=== PATIENT | female | born 1960 | race Caucasian/White ===

== ENCOUNTER 2022-03-18 23:47 | Inpatient (IN) ==
[2022-03-19] MEDS ORDERED: ONDANSETRON 4 MG/2 ML VIAL IV STA (00:41)
[2022-03-19] MEDS ORDERED: SODIUM CHLORIDE 0.9% 1,000 ML IV STA (00:41)
[2022-03-19] MEDS ORDERED: KETOROLAC 30 MG/1 ML VIAL IV STA (00:41)
[2022-03-19] MEDS ORDERED: HYDROmorphone 1 MG/1 ML SYRINGE IV STA ×2 (00:41→02:59)
[2022-03-19 01:43] LABS: Basophils % 0.2 % (0.0-0.8); Eosinophils % 0.1 % (0.00-10.9); Hemoglobin 13.7 GM/DL (12.0-16.0); Immature Granulocytes % 0.6 %; Immature Granulocytes Absolute 0.09 #; Lymphocytes # 0.8 10*3/uL (1.4-4.0); Lymphocytes % 5.3 % (21.3-54.2); Mean Corpuscular HGB Conc 33.4 GM/DL (32-36); Mean Corpuscular Volume 86.1 FL (87-102); Mean Platelet Volume 10.1 FL (9.6-12.0); Monocytes # 0.7 10*3/uL (0.11-0.8); Monocytes % 4.4 % (1.7-12.7); Neutrophils % 89.4 % (38.7-73.9); Platelet Count 244 T/CUMM (130-400); Red Blood Count 4.76 MC/CUMM (3.8-5.5); Red Cell Distribution Width 13.2 % (9.3-17.3); White Blood Count 15.2 T/CUMM (4-12)
[2022-03-19 02:17] LABS: Albumin 3.1 G/DL (3.4-5.0); Bilirubin,Total 0.6 MG/DL (0.20-1.00); Calcium 9.7 MG/DL (8.5-10.1); Osmolality,Calculated 267.9 MOS/KG (273-304); Potassium 4.2 MMOL/L (3.5-5.1); Total Protein 7.5 G/DL (6.4-8.2)
[2022-03-19] MEDS ORDERED: GLUCAGON 1 MG VIAL IM PRN (02:57)
[2022-03-19] MEDS ORDERED: ACETAMINOPHEN 325 MG TABLET PO PRN (02:59)
[2022-03-19] MEDS ORDERED: hydrALAZINE 20 MG/1 ML VIAL IV PRN (02:59)
[2022-03-19] MEDS ORDERED: DEXTROSE 10% 250 ML BAG IV PRN (03:07)
[2022-03-19] MEDS ORDERED: INSULIN REGULAR 100 UNIT/ML SUBCUT PRN (03:37)
[2022-03-19] MEDS: SODIUM CHLORIDE 0.9% 1,000 ML IV SCH ×3 (05:15→23:00)
[2022-03-19] MEDS: PIPERACILLIN/TAZOBACTAM 3,375 MG in SODIUM CHLORIDE 0.9% 100 ML IV SCH ×3 (05:15→22:27)
[2022-03-19] MEDS: ENOXAPARIN 40 MG/0.4 ML SYRINGE SUBCUT SCH (05:15)
[2022-03-19 06:49] LABS: Bacteria,Urine Many /HPF (Few); Mucus,Urine Few /LPF (Occasional); RBC,Urine 119 /HPF (0-4); Urine Appearance Cloudy (Clear); Urine Color Yellow (Yellow); Urine pH 5.5 (4.5-8.0)
[2022-03-19 06:50] LABS: Bilirubin,Urine Negative (Negative); Blood, Urine Large mg/dL (Negative); Glucose,Urine (UA) >1000 mg/dL (Negative); Ketones,Urine Trace mg/dL (Negative); Nitrite,Urine Positive (Negative); Protein,Urine 100 mg/dL (Negative); Urine Specific Gravity 1.025 (1.001-1.035); Urine Urobilinogen 0.2 eU/dL (<2.0)
[2022-03-19] MEDS ORDERED: INSULIN REGULAR 100 UNIT/ML SUBCUT SCH (07:30)
[2022-03-19 08:18] LABS: PT Patient Result 10.8 SECS (10.5-12.0)
[2022-03-19] MEDS: HYDROmorphone 1 MG/1 ML SYRINGE IV PRN ×3 (08:21→21:54)
[2022-03-19] MEDS: DOCUSATE SODIUM 100 MG CAPSULE PO SCH ×2 (09:45→21:49)
[2022-03-19] MEDS: PANTOPRAZOLE 40 MG TABLET PO SCH (09:46)
[2022-03-19] MEDS ORDERED: fentaNYL 100 MCG/2 ML VIAL IV ONE (09:57)
[2022-03-19] MEDS ORDERED: MIDAZOLAM 2 MG/2 ML VIAL IV ONE (09:57)
[2022-03-19] MEDS ORDERED: DIAZEPAM 5 MG TABLET PO ONE (09:57)
[2022-03-19] MEDS ORDERED: SODIUM CHLORIDE 0.45% 1,000 ML IV SCH (10:00)
[2022-03-19] MEDS ORDERED: ONDANSETRON 4 MG/2 ML VIAL IV PRN (17:20)
[2022-03-19] MEDS ORDERED: diphenhydrAMINE 50 MG/1 ML VIAL ONE (17:38)
[2022-03-19] MEDS ORDERED: methylPREDNISolone SOD SUC 125 MG/2 ML VIAL ONE (17:38)
[2022-03-19 17:50] LABS: Calcium 8.7 MG/DL (8.5-10.1); Osmolality,Calculated 273.8 MOS/KG (273-304)
[2022-03-19] MEDS ORDERED: diphenhydrAMINE 50 MG/1 ML VIAL IM ONE (18:28)
[2022-03-19] MEDS ORDERED: HYDROmorphone 1 MG/1 ML SYRINGE IV ONE (18:31)
[2022-03-19] MEDS ORDERED: LACTATED RINGERS 500 ML IV ONE (18:32)
[2022-03-19] MEDS ORDERED: methylPREDNISolone SOD SUC 125 MG/2 ML VIAL IV ONE (18:32)
[2022-03-19] MEDS ORDERED: diphenhydrAMINE 50 MG/1 ML VIAL IV ONE (18:40)
[2022-03-19 18:59] LABS: Hematocrit 34.6 VOL% (35.7-47.0); Hemoglobin 11.1 GM/DL (12.0-16.0); Lymphocytes # 0.3 10*3/uL (1.4-4.0); Lymphocytes % 8.3 % (21.3-54.2); Mean Corpuscular HGB Conc 32.1 GM/DL (32-36); Mean Corpuscular Volume 89.2 FL (87-102); Mean Platelet Volume 9.9 FL (9.6-12.0); Monocytes % 0.3 % (1.7-12.7); Neutrophils % 91.4 % (38.7-73.9); Platelet Count 155 T/CUMM (130-400); Red Blood Count 3.88 MC/CUMM (3.8-5.5); Red Cell Distribution Width 13.6 % (9.3-17.3)
[2022-03-19] MEDS: LACTATED RINGERS 1,000 ML IV SCH (19:19)
[2022-03-19 19:35] LABS: Lymphocytes 12 % (20-55); Polychromasia Slight; Total Cells Counted 100
[2022-03-19 19:36] LABS: Platelet Estimate Normal; Spherocytes Slight
[2022-03-19] MEDS: LEVOFLOXACIN INJ 750 MG/150 ML PREMIX IV SCH (20:41)
[2022-03-19] MEDS: INSULIN GLARGINE 100 UNIT/ML SUBCUT SCH (21:50)
[2022-03-20 01:04] LABS: Albumin 2.1 G/DL (3.4-5.0); Bilirubin,Total 0.6 MG/DL (0.20-1.00); Calcium 8.5 MG/DL (8.5-10.1); Osmolality,Calculated 276.8 MOS/KG (273-304); Potassium 3.8 MMOL/L (3.5-5.1); Total Protein 5.8 G/DL (6.4-8.2)
[2022-03-20] MEDS ORDERED: INSULIN LISPRO 100 UNIT/ML SUBCUT ONE ×2 (01:06→14:49)
[2022-03-20] MEDS: SODIUM CHLORIDE 0.9% 1,000 ML IV SCH ×2 (01:10→11:10)
[2022-03-20] MEDS: HYDROmorphone 1 MG/1 ML SYRINGE IV PRN ×3 (02:09→18:02)
[2022-03-20 04:22] LABS: Basophils % 0.2 % (0.0-0.8); Hematocrit 30.3 VOL% (35.7-47.0); Hemoglobin 9.7 GM/DL (12.0-16.0); Immature Granulocytes % 0.5 %; Immature Granulocytes Absolute 0.07 #; Lymphocytes # 0.3 10*3/uL (1.4-4.0); Lymphocytes % 2.2 % (21.3-54.2); Mean Corpuscular Volume 90.2 FL (87-102); Mean Platelet Volume 10.3 FL (9.6-12.0); Monocytes # 0.3 10*3/uL (0.11-0.8); Monocytes % 2.3 % (1.7-12.7); Neutrophils % 94.8 % (38.7-73.9); Platelet Count 156 T/CUMM (130-400); Red Blood Count 3.36 MC/CUMM (3.8-5.5); Red Cell Distribution Width 13.9 % (9.3-17.3); White Blood Count 13.1 T/CUMM (4-12)
[2022-03-20 04:36] LABS: Calcium 7.9 MG/DL (8.5-10.1); Osmolality,Calculated 280.7 MOS/KG (273-304); Potassium 4.1 MMOL/L (3.5-5.1)
[2022-03-20 04:44] LABS: Lymphocytes 4 % (20-55); Total Cells Counted 100
[2022-03-20 04:45] LABS: Platelet Estimate Adequate
[2022-03-20] MEDS: PIPERACILLIN/TAZOBACTAM 3,375 MG in SODIUM CHLORIDE 0.9% 100 ML IV SCH ×3 (04:45→20:35)
[2022-03-20] MEDS: ENOXAPARIN 40 MG/0.4 ML SYRINGE SUBCUT SCH (04:47)
[2022-03-20] MEDS ORDERED: CARBOXYMETHYLCELLULOSE 1% OPH SOLN BOTH EYES PRN (07:24)
[2022-03-20] MEDS: DOCUSATE SODIUM 100 MG CAPSULE PO SCH ×2 (08:07→20:31)
[2022-03-20] MEDS: PANTOPRAZOLE 40 MG TABLET PO SCH (08:07)
[2022-03-20] MEDS: LACTATED RINGERS 1,000 ML IV SCH ×3 (08:18→17:59)
[2022-03-20] MEDS: INSULIN LISPRO 100 UNIT/ML SUBCUT SCH ×3 (08:25→18:23)
[2022-03-20] MEDS ORDERED: SODIUM CHLORIDE 5% OPH SOLN 15 ML BOTTLE BOTH EYES PRN (16:28)
[2022-03-20] MEDS: GABAPENTIN 400 MG CAPSULE PO SCH ×2 (17:52→20:31)
[2022-03-20] MEDS: DULoxetine 30 MG CAPSULE PO SCH (17:53)
[2022-03-20] MEDS: ESTROGENS (CONJ) 0.625 MG TABLET PO SCH (17:53)
[2022-03-20] MEDS: LEVOFLOXACIN INJ 750 MG/150 ML PREMIX IV SCH (17:54)
[2022-03-20] MEDS: INSULIN GLARGINE 100 UNIT/ML SUBCUT SCH (20:35)
[2022-03-20] MEDS: CARBOXYMETHYLCELLULOSE 1% OPH SOLN BOTH EYES SCH (20:35)
[2022-03-21] MEDS: LACTATED RINGERS 1,000 ML IV SCH ×2 (03:10→11:12)
[2022-03-21] MEDS: PIPERACILLIN/TAZOBACTAM 3,375 MG in SODIUM CHLORIDE 0.9% 100 ML IV SCH ×3 (04:35→20:14)
[2022-03-21] MEDS: ENOXAPARIN 40 MG/0.4 ML SYRINGE SUBCUT SCH (04:35)
[2022-03-21 05:05] LABS: Basophils % 0.1 % (0.0-0.8); Eosinophils % 0.1 % (0.00-10.9); Hemoglobin 9.2 GM/DL (12.0-16.0); Immature Granulocytes % 1.4 %; Immature Granulocytes Absolute 0.17 #; Lymphocytes # 0.9 10*3/uL (1.4-4.0); Mean Corpuscular HGB Conc 32.9 GM/DL (32-36); Mean Platelet Volume 10.7 FL (9.6-12.0); Monocytes # 0.4 10*3/uL (0.11-0.8); Monocytes % 3.5 % (1.7-12.7); Neutrophils % 87.9 % (38.7-73.9); Platelet Count 169 T/CUMM (130-400); Red Blood Count 3.11 MC/CUMM (3.8-5.5); White Blood Count 12.6 T/CUMM (4-12)
[2022-03-21 05:20] LABS: Osmolality,Calculated 275.4 MOS/KG (273-304); Potassium 3.6 MMOL/L (3.5-5.1)
[2022-03-21 05:41] LABS: Lymphocytes 8 % (20-55)
[2022-03-21 05:42] LABS: Platelet Estimate Adequate; Total Cells Counted 100
[2022-03-21] MEDS: HYDROmorphone 1 MG/1 ML SYRINGE IV PRN ×3 (06:20→20:15)
[2022-03-21] MEDS: INSULIN LISPRO 100 UNIT/ML SUBCUT SCH ×3 (08:39→16:48)
[2022-03-21] MEDS: GABAPENTIN 400 MG CAPSULE PO SCH ×3 (09:35→20:15)
[2022-03-21] MEDS: DULoxetine 30 MG CAPSULE PO SCH (09:36)
[2022-03-21] MEDS: DOCUSATE SODIUM 100 MG CAPSULE PO SCH ×2 (09:36→20:15)
[2022-03-21] MEDS: OXYBUTYNIN 5 MG TABLET PO SCH (09:36)
[2022-03-21] MEDS: ESTROGENS (CONJ) 0.625 MG TABLET PO SCH (09:36)
[2022-03-21] MEDS: PANTOPRAZOLE 40 MG TABLET PO SCH (09:36)
[2022-03-21] MEDS ORDERED: OFLOXACIN 0.3% OPH SOLN 5 ML BOTTLE BOTH EYES SCH (09:36)
[2022-03-21] MEDS: CARBOXYMETHYLCELLULOSE 1% OPH SOLN BOTH EYES SCH ×3 (09:37→20:21)
[2022-03-21] MEDS ORDERED: prednisoLONE ACETATE 1% OPH SUSP 5 ML BOTTLE BOTH EYES SCH (10:00)
[2022-03-21] MEDS: SODIUM CHLORIDE 0.9% 1,000 ML IV SCH ×2 (12:01→21:47)
[2022-03-21] MEDS ORDERED: MEROPENEM 500 MG in SODIUM CHLORIDE 0.9% 100 ML IV SCH (13:30)
[2022-03-21] MEDS: INSULIN GLARGINE 100 UNIT/ML SUBCUT SCH (20:14)
[2022-03-22] MEDS: HYDROmorphone 1 MG/1 ML SYRINGE IV PRN ×3 (01:44→18:55)
[2022-03-22] MEDS: PIPERACILLIN/TAZOBACTAM 3,375 MG in SODIUM CHLORIDE 0.9% 100 ML IV SCH (03:09)
[2022-03-22] MEDS: ENOXAPARIN 40 MG/0.4 ML SYRINGE SUBCUT SCH (03:09)
[2022-03-22 03:19] LABS: Basophils % 0.2 % (0.0-0.8); Eosinophils # 0.1 10*3/uL (0.0-0.87); Hematocrit 26.5 VOL% (35.7-47.0); Hemoglobin 8.3 GM/DL (12.0-16.0); Immature Granulocytes % 0.7 %; Immature Granulocytes Absolute 0.07 #; Lymphocytes # 1.4 10*3/uL (1.4-4.0); Lymphocytes % 14.7 % (21.3-54.2); Mean Corpuscular HGB Conc 31.3 GM/DL (32-36); Mean Corpuscular Volume 91.4 FL (87-102); Mean Platelet Volume 10.5 FL (9.6-12.0); Monocytes # 0.4 10*3/uL (0.11-0.8); Monocytes % 3.9 % (1.7-12.7); Neutrophils % 79.5 % (38.7-73.9); Platelet Count 170 T/CUMM (130-400); White Blood Count 9.6 T/CUMM (4-12)
[2022-03-22 03:48] LABS: Potassium 3.8 MMOL/L (3.5-5.1)
[2022-03-22] MEDS: SODIUM CHLORIDE 0.9% 1,000 ML IV SCH ×2 (05:41→15:16)
[2022-03-22] MEDS: INSULIN LISPRO 100 UNIT/ML SUBCUT SCH ×3 (07:46→17:10)
[2022-03-22] MEDS: GABAPENTIN 400 MG CAPSULE PO SCH ×3 (09:29→20:19)
[2022-03-22] MEDS: PANTOPRAZOLE 40 MG TABLET PO SCH (09:29)
[2022-03-22] MEDS: DOCUSATE SODIUM 100 MG CAPSULE PO SCH ×2 (09:30→20:19)
[2022-03-22] MEDS: DULoxetine 30 MG CAPSULE PO SCH (09:30)
[2022-03-22] MEDS: ESTROGENS (CONJ) 0.625 MG TABLET PO SCH (09:30)
[2022-03-22] MEDS: ERTAPENEM 1,000 MG in SODIUM CHLORIDE 0.9% 100 ML IV SCH (09:30)
[2022-03-22] MEDS: OXYBUTYNIN 5 MG TABLET PO SCH (09:30)
[2022-03-22] MEDS: CARBOXYMETHYLCELLULOSE 1% OPH SOLN BOTH EYES SCH ×3 (09:31→20:19)
[2022-03-22] MEDS: prednisoLONE ACETATE 1% OPH SUSP 5 ML BOTTLE LEFT EYE SCH (09:32)
[2022-03-22] MEDS: METOPROLOL TARTRATE 25 MG TABLET PO SCH ×2 (15:17→20:19)
[2022-03-22] MEDS: INSULIN GLARGINE 100 UNIT/ML SUBCUT SCH (20:19)
[2022-03-23] MEDS: SODIUM CHLORIDE 0.9% 1,000 ML IV SCH ×3 (01:10→18:03)
[2022-03-23] MEDS: HYDROmorphone 1 MG/1 ML SYRINGE IV PRN ×4 (01:51→19:36)
[2022-03-23] MEDS: ENOXAPARIN 40 MG/0.4 ML SYRINGE SUBCUT SCH (05:27)
[2022-03-23 05:46] LABS: Basophils % 0.2 % (0.0-0.8); Eosinophils # 0.1 10*3/uL (0.0-0.87); Eosinophils % 1.9 % (0.00-10.9); Hemoglobin 8.3 GM/DL (12.0-16.0); Immature Granulocytes Absolute 0.06 #; Lymphocytes # 1.3 10*3/uL (1.4-4.0); Lymphocytes % 22.3 % (21.3-54.2); Mean Corpuscular HGB Conc 30.7 GM/DL (32-36); Mean Corpuscular Volume 93.1 FL (87-102); Mean Platelet Volume 10.4 FL (9.6-12.0); Monocytes # 0.3 10*3/uL (0.11-0.8); Neutrophils % 69.6 % (38.7-73.9); Platelet Count 150 T/CUMM (130-400); Red Cell Distribution Width 14.1 % (9.3-17.3); White Blood Count 5.8 T/CUMM (4-12)
[2022-03-23 05:53] LABS: Calcium 8.2 MG/DL (8.5-10.1); Osmolality,Calculated 277.5 MOS/KG (273-304)
[2022-03-23] MEDS: INSULIN LISPRO 100 UNIT/ML SUBCUT SCH ×3 (08:17→17:00)
[2022-03-23] MEDS: DOCUSATE SODIUM 100 MG CAPSULE PO SCH ×2 (08:26→21:08)
[2022-03-23] MEDS: PANTOPRAZOLE 40 MG TABLET PO SCH (08:26)
[2022-03-23] MEDS: GABAPENTIN 400 MG CAPSULE PO SCH ×3 (08:26→21:08)
[2022-03-23] MEDS: ESTROGENS (CONJ) 0.625 MG TABLET PO SCH (08:26)
[2022-03-23] MEDS: OXYBUTYNIN 5 MG TABLET PO SCH (08:26)
[2022-03-23] MEDS: METOPROLOL TARTRATE 25 MG TABLET PO SCH ×2 (08:26→21:08)
[2022-03-23] MEDS: DULoxetine 30 MG CAPSULE PO SCH (08:26)
[2022-03-23] MEDS: prednisoLONE ACETATE 1% OPH SUSP 5 ML BOTTLE LEFT EYE SCH (08:27)
[2022-03-23] MEDS: CARBOXYMETHYLCELLULOSE 1% OPH SOLN BOTH EYES SCH ×3 (08:28→21:10)
[2022-03-23] MEDS: ERTAPENEM 1,000 MG in SODIUM CHLORIDE 0.9% 100 ML IV SCH (09:05)
[2022-03-23] MEDS ORDERED: POLYETHYLENE GLYCOL POWDER 17 GM PACK PO PRN (12:33)
[2022-03-23] MEDS: INSULIN GLARGINE 100 UNIT/ML SUBCUT SCH (21:09)
[2022-03-24] MEDS: SODIUM CHLORIDE 0.9% 1,000 ML IV SCH ×2 (04:04→16:23)
[2022-03-24 05:38] LABS: Basophils % 0.4 % (0.0-0.8); Eosinophils # 0.2 10*3/uL (0.0-0.87); Eosinophils % 3.8 % (0.00-10.9); Hematocrit 31.5 VOL% (35.7-47.0); Hemoglobin 9.7 GM/DL (12.0-16.0); Immature Granulocytes % 1.1 %; Immature Granulocytes Absolute 0.06 #; Lymphocytes # 1.4 10*3/uL (1.4-4.0); Lymphocytes % 24.3 % (21.3-54.2); Mean Corpuscular HGB Conc 30.8 GM/DL (32-36); Mean Corpuscular Volume 92.1 FL (87-102); Mean Platelet Volume 10.9 FL (9.6-12.0); Monocytes # 0.4 10*3/uL (0.11-0.8); Monocytes % 6.8 % (1.7-12.7); Neutrophils % 63.6 % (38.7-73.9); Platelet Count 158 T/CUMM (130-400); Red Blood Count 3.42 MC/CUMM (3.8-5.5); Red Cell Distribution Width 14.3 % (9.3-17.3); White Blood Count 5.6 T/CUMM (4-12)
[2022-03-24 05:57] LABS: Calcium 8.7 MG/DL (8.5-10.1); Potassium 3.8 MMOL/L (3.5-5.1)
[2022-03-24] MEDS: INSULIN LISPRO 100 UNIT/ML SUBCUT SCH ×3 (08:29→17:06)
[2022-03-24] MEDS: DULoxetine 30 MG CAPSULE PO SCH (09:51)
[2022-03-24] MEDS: ESTROGENS (CONJ) 0.625 MG TABLET PO SCH (09:51)
[2022-03-24] MEDS: DOCUSATE SODIUM 100 MG CAPSULE PO SCH ×2 (09:52→21:24)
[2022-03-24] MEDS: GABAPENTIN 400 MG CAPSULE PO SCH ×3 (09:53→21:23)
[2022-03-24] MEDS: prednisoLONE ACETATE 1% OPH SUSP 5 ML BOTTLE LEFT EYE SCH (09:53)
[2022-03-24] MEDS: PANTOPRAZOLE 40 MG TABLET PO SCH (09:53)
[2022-03-24] MEDS: METOPROLOL TARTRATE 25 MG TABLET PO SCH ×2 (09:53→21:24)
[2022-03-24] MEDS: OXYBUTYNIN 5 MG TABLET PO SCH (10:00)
[2022-03-24] MEDS: ERTAPENEM 1,000 MG in SODIUM CHLORIDE 0.9% 100 ML IV SCH (10:46)
[2022-03-24] MEDS: lisinopriL 5 MG TABLET PO SCH (15:01)
[2022-03-24] MEDS: HYDROmorphone 1 MG/1 ML SYRINGE IV PRN (16:25)
[2022-03-24] MEDS ORDERED: INSULIN GLARGINE 100 UNIT/ML SUBCUT SCH ×2 (21:00)
[2022-03-24] MEDS: CARBOXYMETHYLCELLULOSE 1% OPH SOLN BOTH EYES SCH ×2 (21:23→21:24)
[2022-03-24] MEDS ORDERED: TROLAMINE SALICYLATE 10% CREAM 85 GM TUBE TOP PRN (22:03)
[2022-03-25] MEDS: CARBOXYMETHYLCELLULOSE 1% OPH SOLN BOTH EYES SCH ×4 (00:25→21:03)
[2022-03-25] MEDS: HYDROmorphone 1 MG/1 ML SYRINGE IV PRN ×2 (01:43→09:57)
[2022-03-25] MEDS: SODIUM CHLORIDE 0.9% 1,000 ML IV SCH (01:44)
[2022-03-25 04:17] LABS: Basophils % 0.3 % (0.0-0.8); Eosinophils # 0.2 10*3/uL (0.0-0.87); Eosinophils % 3.7 % (0.00-10.9); Hemoglobin 8.3 GM/DL (12.0-16.0); Immature Granulocytes % 1.9 %; Immature Granulocytes Absolute 0.12 #; Lymphocytes # 1.4 10*3/uL (1.4-4.0); Mean Corpuscular HGB Conc 31.9 GM/DL (32-36); Mean Corpuscular Volume 89.3 FL (87-102); Mean Platelet Volume 10.4 FL (9.6-12.0); Monocytes # 0.5 10*3/uL (0.11-0.8); Monocytes % 8.2 % (1.7-12.7); Neutrophils % 64.9 % (38.7-73.9); Platelet Count 237 T/CUMM (130-400); Red Blood Count 2.91 MC/CUMM (3.8-5.5); Red Cell Distribution Width 14.2 % (9.3-17.3); White Blood Count 6.5 T/CUMM (4-12)
[2022-03-25 04:39] LABS: Calcium 8.7 MG/DL (8.5-10.1); Osmolality,Calculated 269.8 MOS/KG (273-304); Potassium 3.8 MMOL/L (3.5-5.1)
[2022-03-25] MEDS: ESTROGENS (CONJ) 0.625 MG TABLET PO SCH (09:53)
[2022-03-25] MEDS: DULoxetine 30 MG CAPSULE PO SCH (09:54)
[2022-03-25] MEDS: METOPROLOL TARTRATE 25 MG TABLET PO SCH ×2 (09:55→21:03)
[2022-03-25] MEDS: DOCUSATE SODIUM 100 MG CAPSULE PO SCH (09:55)
[2022-03-25] MEDS: GABAPENTIN 400 MG CAPSULE PO SCH ×3 (09:55→21:01)
[2022-03-25] MEDS: PANTOPRAZOLE 40 MG TABLET PO SCH (09:55)
[2022-03-25] MEDS: lisinopriL 5 MG TABLET PO SCH (09:56)
[2022-03-25] MEDS: OXYBUTYNIN 5 MG TABLET PO SCH (09:56)
[2022-03-25] MEDS ORDERED: DOCUSATE SODIUM 100 MG CAPSULE PO PRN (09:56)
[2022-03-25] MEDS: INSULIN LISPRO 100 UNIT/ML SUBCUT SCH ×3 (09:57→17:29)
[2022-03-25] MEDS: prednisoLONE ACETATE 1% OPH SUSP 5 ML BOTTLE LEFT EYE SCH (09:58)
[2022-03-25] MEDS: BACLOFEN 10 MG TABLET PO SCH ×2 (10:15→21:01)
[2022-03-25] MEDS: ERTAPENEM 1,000 MG in SODIUM CHLORIDE 0.9% 100 ML IV SCH (10:46)
[2022-03-25] MEDS ORDERED: KETOROLAC 15 MG/1 ML VIAL IV ONE (11:00)
[2022-03-25] MEDS ORDERED: SODIUM CHLORIDE 0.9% 1,000 ML IV PRN (15:58)
[2022-03-25] MEDS ORDERED: INSULIN GLARGINE 100 UNIT/ML SUBCUT SCH (21:00)
[2022-03-26 05:11] LABS: Basophils % 0.4 % (0.0-0.8); Eosinophils # 0.3 10*3/uL (0.0-0.87); Eosinophils % 6.3 % (0.00-10.9); Hematocrit 25.9 VOL% (35.7-47.0); Hemoglobin 8.2 GM/DL (12.0-16.0); Immature Granulocytes % 1.3 %; Immature Granulocytes Absolute 0.07 #; Lymphocytes # 1.1 10*3/uL (1.4-4.0); Mean Corpuscular HGB Conc 31.7 GM/DL (32-36); Mean Corpuscular Volume 90.2 FL (87-102); Mean Platelet Volume 10.5 FL (9.6-12.0); Monocytes # 0.5 10*3/uL (0.11-0.8); Monocytes % 8.7 % (1.7-12.7); Neutrophils % 62.3 % (38.7-73.9); Platelet Count 253 T/CUMM (130-400); Red Blood Count 2.87 MC/CUMM (3.8-5.5); Red Cell Distribution Width 14.4 % (9.3-17.3); White Blood Count 5.2 T/CUMM (4-12)
[2022-03-26 05:36] LABS: Calcium 8.4 MG/DL (8.5-10.1); Osmolality,Calculated 280.4 MOS/KG (273-304); Potassium 4.3 MMOL/L (3.5-5.1)
[2022-03-26] MEDS: INSULIN LISPRO 100 UNIT/ML SUBCUT SCH ×2 (08:04→16:30)
[2022-03-26] MEDS: GABAPENTIN 400 MG CAPSULE PO SCH ×2 (09:45→16:31)
[2022-03-26] MEDS: DULoxetine 30 MG CAPSULE PO SCH (09:45)
[2022-03-26] MEDS: ESTROGENS (CONJ) 0.625 MG TABLET PO SCH (09:45)
[2022-03-26] MEDS: BACLOFEN 10 MG TABLET PO SCH (09:45)
[2022-03-26] MEDS: OXYBUTYNIN 5 MG TABLET PO SCH (09:46)
[2022-03-26] MEDS: lisinopriL 5 MG TABLET PO SCH (09:46)
[2022-03-26] MEDS: PANTOPRAZOLE 40 MG TABLET PO SCH (09:46)
[2022-03-26] MEDS: METOPROLOL TARTRATE 25 MG TABLET PO SCH (09:46)
[2022-03-26] MEDS: CARBOXYMETHYLCELLULOSE 1% OPH SOLN BOTH EYES SCH ×2 (09:47→16:31)
[2022-03-26] MEDS: prednisoLONE ACETATE 1% OPH SUSP 5 ML BOTTLE LEFT EYE SCH (09:48)
[2022-03-26] MEDS: ERTAPENEM 1,000 MG in SODIUM CHLORIDE 0.9% 100 ML IV SCH (11:08)
[2022-03-26 13:06] VITALS: BP 158/78
== END 2022-03-26 15:25 | disposition home health service (06) | DRG 690 ==
LOC: N.ED 23:47 → SUATTDRO 03-19 02:57 → N.EDINP 03-19 02:57 → N.5E 03-19 15:56 → N.CC 03-19 18:27 → N.5E 03-23 16:53
PROVIDERS: ADMIT Internal Medicine; ATTEND Family Medicine